=== PATIENT | male | born 1985 ===

== ENCOUNTER 2021-12-23 11:35 | Day surgery (SDC) | payer OTHER ==
[~2021-12-23] VITALS: Ht 177.8 cm; Wt 121.4 kg
[2021-12-23] MEDS ORDERED: MULTI VITAMINS1 TAB PO (12:50)
[2021-12-23] MEDS ORDERED: CYMBALTA 30MG30 MG PO (12:50)
[2021-12-23 13:39] VITALS: BP 144/91; PULSE 74; TEMP 97.6
[2021-12-23 14:30] VITALS: BP 119/68; PULSE 76; TEMP 97.4
--- NOTE | 2021-12-23 14:30 | NUR ---
PATIENT TO ROOM VIA CART. ASSIST X 1 TO GET TO CHAIR. SON AT BEDSIDE. PATIENT REQUESTS COKE TO DRINK AND CHOCOLATE PUDDING. DENIES ANY PAIN.
[2021-12-23 14:45] VITALS: BP 122/72; PULSE 79
--- NOTE | 2021-12-23 14:45 | NUR ---
PATIENT TOLERATED COKE AND PUDDING WELL. WAITING FOR DOCTOR TO COME TALK TO HIM SO HE CAN D/C.
[2021-12-23 15:00] VITALS: BP 129/88; PULSE 73
--- NOTE | 2021-12-23 15:00 | NUR ---
PATIENT STILL WAITING FOR DOCTOR TO COME SPEAK WITH HIM. I REMOVED HIS IV AT 1513 AND HE IS GETTING DRESSED. SON STILL AT BEDSIDE.
== END 2021-12-23 15:16 | disposition home or self-care (01) ==
LOC: SDCO 11:35
DX: K92.1 Melena (principal); K64.0 First degree hemorrhoids
CPT/HCPCS: J2704; J7120